=== PATIENT | male | born 1955 | race Caucasian/White ===

== ENCOUNTER 2024-06-07 13:24 | Outpatient (CLI) | payer MEDICARE, SELFPAY ==
--- NOTE | ~2024-06-07 | XR_ITS ---
EXAMINATION: XR hand LT min 3V, XR wrist RT min 3V, XR wrist LT min 3V, XR hand RT min 3V DATE: 06/07/2024 13:54 INDICATION: Nontraumatic bilateral hand and wrist pain. TECHNIQUE: 1. Posteroanterior, ulnar deviation, oblique, and lateral views of the left wrist were obtained. 2. Dorsal palmar, oblique and lateral views of the left hand were obtained. 3. Posteroanterior, ulnar deviation, oblique, and lateral views of the right wrist were obtained. 4. Dorsal palmar, oblique and lateral views of the right hand were obtained. COMPARISON: None. FINDINGS: Left hand and wrist: Alignment of the left hand and wrist is normal. No fracture identified. 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 Mild osteoarthritis at the distal radioulnar, wrist, triscaphe and remaining metacarpophalangeal and interphalangeal joints. No erosions to suggest an inflammatory arthritis. Soft tissues are unremarkable. Right hand and wrist: Alignment of the right hand and wrist is normal. No fracture identified. Relatively symmetric patter n of polyarticular osteoarthritis, severe at the first carpometacarpal joint, moderate severity at th e first and second metacarpophalangeal and multiple predominantly distal interphalangeal joints and m ild at the distal radioulnar, wrist, triscaphe and remaining metacarpophalangeal and interphalangeal joints. No cortical erosions. Soft tissues are unremarkable. IMPRESSION: 1. Relatively symmetric pattern of polyarticular osteoarthritis at the bilateral hands and wrists, se fab at the right and moderate to severe at the left first carpal metacarpal joints and moderate or m ild at the remaining joints. Reviewed, dictated and finalized at location A. ING DOCK HAND IMPRESSION: 1. Relatively symmetric pattern of polyarticular osteoarthritis at the bilatera l hands and wrists, severe at the right and moderate to severe at the left firs t carpal metacarpal joints and moderate or mild at the remaining joints. IMPRESSION: 1. Relatively symmetric pattern of polyarticular osteoarthritis at the bilatera l hands and wrists, severe at the right and moderate to severe at the left firs t carpal metacarpal joints and moderate or mild at the remaining joints. IMPRESSION: 1. Relatively symmetric pattern of polyarticular osteoarthritis at the bilatera l hands and wrists, severe at the right and moderate to severe at the left firs t carpal metacarpal joints and moderate or mild at the remaining joints.
== END 2024-06-07 13:25 | disposition home or self-care (01) ==
PROVIDERS: PCP Pain Medicine Pain Medicine; Visit Provider Pain Medicine Pain Medicine
DX: M19.042 Primary osteoarthritis, left hand (principal); M19.041 Primary osteoarthritis, right hand; M19.032 Primary osteoarthritis, left wrist; M19.031 Primary osteoarthritis, right wrist
CPT/HCPCS: 73110; 73130